=== PATIENT | female | born 1950 | race Asian ===

== ENCOUNTER 2016-11-05 10:08 | Outpatient (CLI) | payer OTHER | END 2016-11-05 19:30 | disposition home or self-care (01) | LOC: RAD 10:08 | DX: R09.82 Postnasal drip (principal); J40 Bronchitis, not specified as acute or chronic ==

== ENCOUNTER 2017-06-02 08:19 | Outpatient (CLI) | payer OTHER ==
[2017-06-02 08:59] LABS: PLATELET COUNT 236 K/uL (152-353)
[2017-06-02 09:30] LABS: POTASSIUM 3.8 mmol/L (3.6-5.2); SODIUM 139 mmol/L (136-145)
== END 2017-06-02 19:07 | disposition home or self-care (01) ==
LOC: MAMMO 08:19
PROVIDERS: Nurse Practitioner Family
DX: Z12.31 Encounter for screening mammogram for malignant neoplasm of breast (principal); I10 Essential (primary) hypertension; M06.09 Rheumatoid arthritis without rheumatoid factor, multiple sites; E03.8 Other specified hypothyroidism; E55.9 Vitamin D deficiency, unspecified
CPT/HCPCS: 36415; 80053; 82306; 84439; 84443; 84481; 85027; 85651; 86140

== ENCOUNTER 2017-08-16 12:13 | Outpatient (CLI) | payer OTHER | END 2017-08-16 19:49 | disposition home or self-care (01) | LOC: LABW 12:13 | DX: R53.83 Other fatigue (principal); M06.09 Rheumatoid arthritis without rheumatoid factor, multiple sites; Z79.899 Other long term (current) drug therapy; Z51.81 Encounter for therapeutic drug level monitoring | CPT/HCPCS: 36415; 84132 ==

== ENCOUNTER 2017-12-02 08:36 | Outpatient (CLI) | payer OTHER | END 2017-12-02 19:10 | disposition home or self-care (01) | LOC: US 08:36 | DX: R94.5 Abnormal results of liver function studies (principal) ==

== ENCOUNTER 2018-06-15 10:25 | Outpatient (CLI) | payer OTHER ==
[2018-06-15 10:57] LABS: PLATELET COUNT 193 K/uL (152-353)
[2018-06-15 11:13] LABS: POTASSIUM 3.7 mmol/L (3.6-5.2)
== END 2018-06-15 21:43 | disposition home or self-care (01) ==
LOC: LABW 10:25
PROVIDERS: Nurse Practitioner Family
DX: R94.5 Abnormal results of liver function studies (principal); Z79.899 Other long term (current) drug therapy; E56.8 Deficiency of other vitamins; E03.8 Other specified hypothyroidism; I10 Essential (primary) hypertension; M06.09 Rheumatoid arthritis without rheumatoid factor, multiple sites
CPT/HCPCS: 36415; 80053; 80061; 82306; 82746; 84080; 84439; 84443; 84481; 85027; 85651; 86140

== ENCOUNTER 2018-08-23 08:40 | Outpatient (CLI) | payer OTHER | END 2018-08-23 19:42 | disposition home or self-care (01) | LOC: US 08:40 | DX: R74.8 Abnormal levels of other serum enzymes (principal); M06.9 Rheumatoid arthritis, unspecified; I10 Essential (primary) hypertension ==

== ENCOUNTER 2018-08-24 08:34 | Outpatient (CLI) | payer OTHER | END 2018-08-24 21:41 | disposition home or self-care (01) | LOC: MAMMO 08:34 | DX: Z12.31 Encounter for screening mammogram for malignant neoplasm of breast (principal) ==

== ENCOUNTER 2019-01-22 08:50 | Outpatient (CLI) | payer OTHER | END 2019-01-23 05:46 | disposition home or self-care (01) | LOC: RAD 08:50 | DX: M85.89 Other specified disorders of bone density and structure, multiple sites (principal) ==

== ENCOUNTER 2019-08-31 08:51 | Outpatient (CLI) | payer OTHER | END 2019-08-31 22:45 | disposition home or self-care (01) | LOC: MAMMO 08:51 | DX: Z12.31 Encounter for screening mammogram for malignant neoplasm of breast (principal); M35.01 Sjogren syndrome with keratoconjunctivitis ==

== ENCOUNTER 2020-09-25 09:42 | Outpatient (CLI) | payer OTHER | END 2020-09-25 21:28 | disposition home or self-care (01) | LOC: MAMMO 09:42 | PROVIDERS: ATTEND Nurse Practitioner Family | DX: Z12.31 Encounter for screening mammogram for malignant neoplasm of breast (principal) ==

== ENCOUNTER → 2020-12-21 | Emergency (ER) | payer OTHER | LOC: ED 06:09 | DX: M25.552 Pain in left hip (principal); M62.831 Muscle spasm of calf; M16.12 Unilateral primary osteoarthritis, left hip | CPT/HCPCS: 36415; 96374; 96375; 99284; J1100; J1885; J2060 ==

== ENCOUNTER 2021-03-07 15:06 | Emergency (ER) | payer OTHER ==
[~2021-03-07] VITALS: Ht 165.1 cm; Wt 56.2 kg
[2021-03-07 15:58] LABS: PLATELET COUNT 250 K/uL (152-353)
[2021-03-07 19:48] VITALS: BP 128/82; TEMP 98.4
== END 2021-03-07 19:48 | disposition home or self-care (01) ==
LOC: ED 15:06
PROVIDERS: Family Medicine
DX: E87.6 Hypokalemia (principal); S22.32XA Fracture of one rib, left side, initial encounter for closed fracture; M51.36 Other intervertebral disc degeneration, lumbar region; Z98.890 Other specified postprocedural states; X58.XXXA Exposure to other specified factors, initial encounter; Y92.89 Other specified places as the place of occurrence of the external cause
CPT/HCPCS: 80053; 81000; 82150; 82550; 83690; 84132; 84484; 85027; 96374; 96375; 99284; J1100; J1885; J2405

== ENCOUNTER 2021-05-04 15:13 | Inpatient (IN) | payer OTHER ==
[~2021-05-04] VITALS: Ht 165.1 cm; Wt 80.8 kg
[2021-05-04 17:57] VITALS: BP 132/60; TEMP 97.9; Ht 165.1 cm; Wt 80.8 kg
[2021-05-06 20:00] VITALS: BP 115/67; TEMP 100.4
[2021-05-07 20:00] VITALS: BP 141/59; TEMP 98.6
[2021-05-08 08:00] VITALS: BP 164/75; TEMP 98.5
[2021-05-08 20:00] VITALS: BP 116/68; TEMP 98.5
[2021-05-09 20:00] VITALS: BP 134/68; TEMP 99.1
[2021-05-10 08:00] VITALS: BP 123/54; TEMP 97.5
[2021-05-10 20:38] VITALS: BP 138/73; TEMP 99
[2021-05-11 08:00] VITALS: BP 119/59; TEMP 98
[2021-05-11 20:00] VITALS: BP 144/78; TEMP 98.4
[2021-05-12 08:00] VITALS: BP 163/82; TEMP 98.1
[2021-05-12 20:00] VITALS: BP 116/67; TEMP 98.3
[2021-05-13 08:00] VITALS: BP 129/62; TEMP 100.2
[2021-05-14 08:00] VITALS: BP 137/62; TEMP 98.5
[2021-05-14 20:25] VITALS: BP 133/55; TEMP 98.6
[2021-05-15 08:00] VITALS: BP 168/66; TEMP 98.7
[2021-05-15 20:42] VITALS: BP 152/67; TEMP 98.9
[2021-05-16 08:00] VITALS: BP 138/66; TEMP 98.8
[2021-05-16 20:23] VITALS: BP 138/72; TEMP 98.7
[2021-05-17 21:38] VITALS: BP 109/66; TEMP 98.6
[2021-05-17 21:39] VITALS: BP 156/86; TEMP 98.1
[2021-05-18 01:38] VITALS: BP 146/82; TEMP 98.9
[2021-05-18 05:38] VITALS: BP 132/76; TEMP 98
[2021-05-18 09:38] VITALS: BP 132/75; TEMP 98.9
[2021-05-18 20:06] VITALS: BP 145/75; TEMP 97.9
[2021-05-19 08:00] VITALS: BP 153/69; TEMP 98.6
[2021-05-19 20:00] VITALS: BP 141/64; TEMP 98.9
[2021-05-20 08:00] VITALS: BP 128/46; TEMP 98.8
[2021-05-20 20:00] VITALS: BP 153/66; TEMP 98.2
[2021-05-22 08:00] VITALS: BP 141/60; TEMP 97.3
[2021-05-22 19:54] VITALS: BP 162/78; TEMP 98.3
[2021-05-23 08:00] VITALS: BP 140/66; TEMP 98.7
[2021-05-23 20:36] VITALS: BP 144/78; TEMP 98.7
[2021-05-24 08:00] VITALS: BP 140/68; TEMP 98.6
[2021-05-24 20:59] VITALS: BP 119/61; TEMP 98.8
[2021-05-25 20:00] VITALS: BP 161/72; TEMP 98.3
[2021-05-26 08:00] VITALS: BP 166/87; TEMP 98.7
[2021-05-26] MEDS ORDERED: METO25TA4 PEG (12:36)
[2021-05-26] MEDS ORDERED: HYDR25TA60 PEG (12:37)
[2021-05-26] MEDS ORDERED: GABA300C2 PEG (12:38)
[2021-05-26] MEDS ORDERED: ROPINIROLE0.5 MG PEG (12:39)
[2021-05-26] MEDS ORDERED: APIX1TAB PEG (12:40)
[2021-05-26] MEDS ORDERED: IMODIUM A-D2 M2 PEG (12:40)
[2021-05-26] MEDS ORDERED: MIRALAX17 GM PEG (12:41)
[2021-05-26] MEDS ORDERED: APAP325 MG PEG (12:50)
[2021-05-26] MEDS ORDERED: LANSOPRAZOLE 3 MG/ML PEG (12:51)
[2021-05-26] MEDS ORDERED: LIPITOR80 MG PEG (12:52)
[2021-05-26] MEDS ORDERED: LEVO0.0218 PO (12:52)
[2021-05-26] MEDS ORDERED: JEVITY PEG (12:53)
[2021-05-26] MEDS ORDERED: KP FOLIC ACID1 MG PEG (12:54)
[2021-05-26] MEDS ORDERED: ISOPTO TEARS 0.5% OPTH (12:55)
[2021-05-26] MEDS ORDERED: ACIDOPHILU6 PEG (12:56)
[2021-05-26] MEDS ORDERED: HYDR200T3 PEG (12:57)
[2021-05-26] MEDS ORDERED: ASPIRIN 81 LOW81 MG PEG (12:57)
== END 2021-05-26 14:10 | DRG 56 ==
LOC: MED/SURG 15:13
PROVIDERS: ADMIT Internal Medicine Endocrinology, Diabetes & Metabolism; ATTEND Internal Medicine Endocrinology, Diabetes & Metabolism
DX: I69.352 Hemiplegia and hemiparesis following cerebral infarction affecting left dominant side (principal); D64.9 Anemia, unspecified; I69.320 Aphasia following cerebral infarction; I69.391 Dysphagia following cerebral infarction; R13.12 Dysphagia, oropharyngeal phase; Z43.1 Encounter for attention to gastrostomy; Z43.0 Encounter for attention to tracheostomy; I10 Essential (primary) hypertension; K21.9 Gastro-esophageal reflux disease without esophagitis; E78.5 Hyperlipidemia, unspecified; E03.9 Hypothyroidism, unspecified; M62.81 Muscle weakness (generalized); J96.90 Respiratory failure, unspecified, unspecified whether with hypoxia or hypercapnia; Z74.1 Need for assistance with personal care; R53.81 Other malaise; M06.9 Rheumatoid arthritis, unspecified; I26.92 Saddle embolus of pulmonary artery without acute cor pulmonale; R27.9 Unspecified lack of coordination
CPT/HCPCS: 84550; 86140; 87077; 87081; 87186; 94760; G0283-GO; J1100

== ENCOUNTER 2021-05-26 13:31 | Inpatient (IN) | payer OTHER ==
[~2021-05-26 13:31] MED LIST: ACIDOPHILU6 PEG; APAP325 MG PEG; APIX1TAB PEG; ASPIRIN 81 LOW81 MG PEG; GABA300C2 PEG; HYDR200T3 PEG; HYDR25TA60 PEG; IMODIUM A-D2 M2 PEG; ISOPTO TEARS 0.5% OPTH; JEVITY PEG; KP FOLIC ACID1 MG PEG; LANSOPRAZOLE 3 MG/ML PEG; LEVO0.0218 PO; LIPITOR80 MG PEG; METO25TA4 PEG; MIRALAX17 GM PEG; ROPINIROLE0.5 MG PEG
== END 2021-05-27 09:31 | disposition still patient (30) ==
LOC: PAVB 13:31
PROVIDERS: ADMIT Internal Medicine; ATTEND Internal Medicine
DX: I69.354 Hemiplegia and hemiparesis following cerebral infarction affecting left non-dominant side (principal); I69.391 Dysphagia following cerebral infarction; I33.0 Acute and subacute infective endocarditis; I26.92 Saddle embolus of pulmonary artery without acute cor pulmonale; B96.1 Klebsiella pneumoniae [K. pneumoniae] as the cause of diseases classified elsewhere; Z93.1 Gastrostomy status; Z16.24 Resistance to multiple antibiotics; Z74.1 Need for assistance with personal care; M62.81 Muscle weakness (generalized)

== ENCOUNTER 2021-06-27 08:40 | Inpatient (IN) | payer OTHER | END 2021-07-28 09:27 | disposition still patient (30) | LOC: PAVB 08:40 | PROVIDERS: ADMIT Internal Medicine; ATTEND Internal Medicine | CPT/HCPCS: 80076; 84439; 84443 ==

== ENCOUNTER 2021-07-02 05:54 | Outpatient (CLI) | payer OTHER | END 2021-07-02 19:10 | disposition home or self-care (01) | LOC: LAB 05:54 | PROVIDERS: ATTEND Internal Medicine | DX: E03.9 Hypothyroidism, unspecified (principal); R94.5 Abnormal results of liver function studies | CPT/HCPCS: 80076; 84439; 84443 ==

== ENCOUNTER 2021-07-07 14:27 | Outpatient (CLI) | payer OTHER ==
[2021-07-07 14:49] LABS: PLATELET COUNT 303 K/uL (152-353)
== END 2021-07-07 19:18 | disposition home or self-care (01) ==
LOC: LAB 14:27
PROVIDERS: ATTEND Internal Medicine
DX: R20.8 Other disturbances of skin sensation (principal)
CPT/HCPCS: 36415; 84439; 84443; 85027

== ENCOUNTER 2021-07-09 21:24 | Emergency (ER) | payer OTHER ==
[~2021-07-09] VITALS: Ht 165.1 cm; Wt 78.5 kg
[2021-07-09 23:55] VITALS: BP 123/72; TEMP 98.3
== END 2021-07-09 23:55 ==
LOC: ED 21:24
DX: M25.512 Pain in left shoulder (principal); M75.02 Adhesive capsulitis of left shoulder
CPT/HCPCS: 93005; 96372; 99283; J1885; J2270; J2405

== ENCOUNTER 2021-07-28 13:22 | Inpatient (IN) | payer OTHER | END 2021-08-25 08:56 | disposition still patient (30) | LOC: PAVB 13:22 | PROVIDERS: ADMIT Internal Medicine; ATTEND Internal Medicine ==

== ENCOUNTER 2021-08-25 12:09 | Inpatient (IN) | payer OTHER | END 2021-09-25 08:40 | disposition still patient (30) | LOC: PAVB 12:09 | PROVIDERS: ADMIT Internal Medicine; ATTEND Internal Medicine ==

== ENCOUNTER 2021-08-31 06:57 | Outpatient (CLI) | payer OTHER | END 2021-08-31 19:06 | disposition home or self-care (01) | LOC: LAB 06:57 | PROVIDERS: ATTEND Internal Medicine | DX: E03.8 Other specified hypothyroidism (principal) | CPT/HCPCS: 36415; 84439; 84443 ==

== ENCOUNTER 2021-09-19 06:20 | Outpatient (CLI) | payer OTHER | END 2021-09-19 19:41 | disposition home or self-care (01) | LOC: LAB 06:20 | PROVIDERS: ATTEND Internal Medicine | DX: Z79.899 Other long term (current) drug therapy (principal); Z16.19 Resistance to other specified beta lactam antibiotics | CPT/HCPCS: 87081 ==

== ENCOUNTER 2021-09-25 08:50 | Inpatient (IN) | payer OTHER ==
[2021-09-30] MEDS ORDERED: ASPIRIN 81 LOW81 MG PEG (09:43)
[2021-09-30] MEDS ORDERED: LIPITOR80 MG PEG (09:45)
[2021-09-30] MEDS ORDERED: FE TABS325 MG PEG (09:46)
[2021-09-30] MEDS ORDERED: PAROXETINE HYDR20 MG PEG (09:50)
[2021-09-30] MEDS ORDERED: LANSOPRAZOLE DR30 MG PEG (09:51)
[2021-09-30] MEDS ORDERED: COLCHICINE0.6 M1 PEG (09:52)
[2021-09-30] MEDS ORDERED: ENTERAL NUTRITION FORMULA PEG (09:55)
[2021-09-30] MEDS ORDERED: MELOXICAM7.5 MG PEG (09:56)
[2021-09-30] MEDS ORDERED: SYSTANE OPTH (10:00)
[2021-09-30] MEDS ORDERED: TYLENOL 8 HOUR650 MG PEG (10:03)
[2021-10-07] MEDS ORDERED: QUET25TA2 PO (10:36)
[2021-10-07] MEDS ORDERED: GABA300C2 PO ×2 (10:37)
[2021-10-07] MEDS ORDERED: Voltaren GEL 1% 100G TOP (10:37)
[2021-10-07] MEDS ORDERED: ESCI10TA PO (10:37)
[2021-10-07] MEDS ORDERED: MELOXICAM7.5 MG PEG (10:39)
== END 2021-10-25 09:45 | disposition still patient (30) ==
LOC: PAVB 08:50
PROVIDERS: ADMIT Internal Medicine; ATTEND Internal Medicine

== ENCOUNTER 2021-09-29 14:13 | Emergency (ER) | payer OTHER ==
[~2021-09-29] VITALS: Ht 165.1 cm; Wt 78.5 kg
[2021-09-29 14:13] VITALS: BP 121/62; TEMP 98.8
[2021-09-29 14:58] LABS: PLATELET COUNT 145 K/uL (152-353)
[2021-09-29 15:22] LABS: POTASSIUM 3.6 mmol/L (3.6-5.2)
[2021-09-30] MEDS ORDERED: ASPIRIN 81 LOW81 MG PEG (09:43)
[2021-09-30] MEDS ORDERED: LIPITOR80 MG PEG (09:45)
[2021-09-30] MEDS ORDERED: FE TABS325 MG PEG (09:46)
[2021-09-30] MEDS ORDERED: PAROXETINE HYDR20 MG PEG (09:50)
[2021-09-30] MEDS ORDERED: LANSOPRAZOLE DR30 MG PEG (09:51)
[2021-09-30] MEDS ORDERED: COLCHICINE0.6 M1 PEG (09:52)
[2021-09-30] MEDS ORDERED: ENTERAL NUTRITION FORMULA PEG (09:55)
[2021-09-30] MEDS ORDERED: MELOXICAM7.5 MG PEG (09:56)
[2021-09-30] MEDS ORDERED: SYSTANE OPTH (10:00)
[2021-09-30] MEDS ORDERED: TYLENOL 8 HOUR650 MG PEG (10:03)
== END 2021-09-29 15:52 | disposition still patient (30) ==
LOC: ED 14:43
PROVIDERS: Emergency Medicine
DX: R45.1 Restlessness and agitation (principal); R50.9 Fever, unspecified; R30.0 Dysuria; Z11.52 Encounter for screening for COVID-19; Z04.6 Encounter for general psychiatric examination, requested by authority
CPT/HCPCS: 80053; 85027; 87635; 93005; 99283; U0003

== ENCOUNTER 2021-10-12 15:06 | Outpatient (CLI) | payer OTHER ==
[~2021-10-12 15:06] MED LIST changes: +COLCHICINE0.6 M1 PEG; +ENTERAL NUTRITION FORMULA PEG; +ESCI10TA PO; +FE TABS325 MG PEG; +GABA300C2 PO; +LANSOPRAZOLE DR30 MG PEG; +MELOXICAM7.5 MG PEG; +PAROXETINE HYDR20 MG PEG; +QUET25TA2 PO; +SYSTANE OPTH; +TYLENOL 8 HOUR650 MG PEG; +Voltaren GEL 1% 100G TOP
[2021-10-12 15:54] LABS: PLATELET COUNT 131 K/uL (152-353)
== END 2021-10-12 20:17 | disposition home or self-care (01) ==
LOC: LAB 15:06
PROVIDERS: ATTEND Internal Medicine
DX: K92.1 Melena (principal)
CPT/HCPCS: 82272; 85027

== ENCOUNTER 2021-10-25 11:56 | Inpatient (IN) | payer OTHER | END 2021-11-25 09:34 | disposition still patient (30) | LOC: PAVB 11:56 | PROVIDERS: ADMIT Internal Medicine; ATTEND Internal Medicine ==

== ENCOUNTER 2021-10-27 07:34 | Outpatient (CLI) | payer OTHER ==
[2021-10-27 08:01] LABS: PLATELET COUNT 98 K/uL (152-353)
[2021-10-27 08:19] LABS: POTASSIUM 3.4 mmol/L (3.6-5.2)
== END 2021-10-27 18:57 | disposition home or self-care (01) ==
LOC: LAB 07:34
PROVIDERS: ATTEND Internal Medicine
DX: D64.89 Other specified anemias (principal)
CPT/HCPCS: 80053; 85027

== ENCOUNTER 2021-11-03 05:45 | Outpatient (CLI) | payer OTHER ==
[2021-11-03 06:54] LABS: PLATELET COUNT 152 K/uL (152-353)
== END 2021-11-03 18:54 | disposition home or self-care (01) ==
LOC: LAB 05:45
PROVIDERS: ATTEND Internal Medicine
DX: R79.89 Other specified abnormal findings of blood chemistry (principal)
CPT/HCPCS: 85027

== ENCOUNTER 2021-11-20 14:20 | Outpatient (CLI) | payer OTHER ==
[2021-11-20 15:02] LABS: PLATELET COUNT 179 K/uL (152-353)
[2021-11-20 15:08] LABS: POTASSIUM 3.5 mmol/L (3.6-5.2)
== END 2021-11-20 19:30 | disposition home or self-care (01) ==
LOC: LAB 14:20
PROVIDERS: ATTEND Internal Medicine
DX: M06.8A Other specified rheumatoid arthritis, other specified site (principal); E03.8 Other specified hypothyroidism
CPT/HCPCS: 80053; 84439; 84443; 84550; 85027; 85652; 86038; 86140; 86235; 86431

== ENCOUNTER 2021-11-25 08:24 | Outpatient (CLI) | payer OTHER | END 2021-11-25 19:08 | disposition home or self-care (01) | LOC: US 08:24 | PROVIDERS: ATTEND Internal Medicine | DX: R94.5 Abnormal results of liver function studies (principal) ==

== ENCOUNTER 2021-11-25 12:57 | Inpatient (IN) | payer OTHER | END 2021-12-25 09:02 | disposition still patient (30) | LOC: PAVB 12:57 | PROVIDERS: ADMIT Internal Medicine; ATTEND Internal Medicine ==

== ENCOUNTER 2021-12-18 13:12 | Outpatient (CLI) | payer OTHER ==
[2021-12-18 15:03] LABS: PLATELET COUNT 192 K/uL (152-353)
== END 2021-12-18 19:22 | disposition home or self-care (01) ==
LOC: LAB 13:12
PROVIDERS: ATTEND Internal Medicine
DX: D64.89 Other specified anemias (principal)
CPT/HCPCS: 85027

== ENCOUNTER 2021-12-22 07:01 | Outpatient (CLI) | payer OTHER ==
[2021-12-22 16:13] LABS: PLATELET COUNT 211 K/uL (152-353)
== END 2021-12-22 20:33 | disposition home or self-care (01) ==
LOC: LAB 07:01
PROVIDERS: ATTEND Internal Medicine
DX: D64.9 Anemia, unspecified (principal)
CPT/HCPCS: 82607; 82728; 82747; 83540; 83550; 85027

== ENCOUNTER 2021-12-24 06:19 | Outpatient (CLI) | payer OTHER | END 2021-12-24 18:52 | disposition home or self-care (01) | LOC: LAB 06:19 | PROVIDERS: ATTEND Internal Medicine | DX: N18.9 Chronic kidney disease, unspecified (principal); D63.8 Anemia in other chronic diseases classified elsewhere | CPT/HCPCS: 82272 ==

== ENCOUNTER 2021-12-25 10:41 | Inpatient (IN) | payer OTHER | END 2022-01-25 09:13 | disposition still patient (30) | LOC: PAVB 10:41 | PROVIDERS: ADMIT Internal Medicine; ATTEND Internal Medicine ==

== ENCOUNTER 2022-01-13 05:41 | Outpatient (CLI) | payer OTHER ==
[2022-01-13 07:46] LABS: PLATELET COUNT 170 K/uL (152-353)
== END 2022-01-13 19:18 | disposition home or self-care (01) ==
LOC: LAB 05:41
PROVIDERS: ATTEND Internal Medicine
DX: R48.8 Other symbolic dysfunctions (principal); D64.9 Anemia, unspecified
CPT/HCPCS: 85027

== ENCOUNTER 2022-01-21 17:37 | Outpatient (CLI) | payer OTHER | END 2022-01-21 22:29 | disposition home or self-care (01) | LOC: LAB 17:37 | PROVIDERS: ATTEND Internal Medicine | DX: D51.9 Vitamin B12 deficiency anemia, unspecified (principal) | CPT/HCPCS: 82607 ==

== ENCOUNTER 2022-01-25 11:17 | Inpatient (IN) | payer OTHER | END 2022-02-25 08:59 | disposition still patient (30) | LOC: PAVB 11:17 | PROVIDERS: ADMIT Internal Medicine; ATTEND Internal Medicine ==

== ENCOUNTER 2022-02-15 08:04 | Outpatient (CLI) | payer OTHER ==
[2022-02-15 08:19] LABS: PLATELET COUNT 170 K/uL (152-353)
== END 2022-02-15 18:48 | disposition home or self-care (01) ==
LOC: LAB 08:04
PROVIDERS: ATTEND Internal Medicine
DX: D64.89 Other specified anemias (principal)
CPT/HCPCS: 85027

== ENCOUNTER 2022-02-17 16:22 | Outpatient (CLI) | payer OTHER | END 2022-02-17 19:40 | disposition home or self-care (01) | LOC: LAB 16:22 | PROVIDERS: ATTEND Internal Medicine | DX: K94.23 Gastrostomy malfunction (principal) | CPT/HCPCS: 87070; 87077; 87186; 87205 ==

== ENCOUNTER 2022-02-19 14:45 | Outpatient (CLI) | payer OTHER ==
[2022-02-19 15:34] LABS: POTASSIUM 3.5 mmol/L (3.6-5.2)
== END 2022-02-19 21:06 | disposition home or self-care (01) ==
LOC: LAB 14:45
PROVIDERS: ATTEND Internal Medicine
DX: R00.1 Bradycardia, unspecified (principal); E03.8 Other specified hypothyroidism
CPT/HCPCS: 80048; 84439; 84443

== ENCOUNTER 2022-02-25 10:40 | Inpatient (IN) | payer OTHER | END 2022-03-27 10:21 | disposition still patient (30) | LOC: PAVB 10:40 | PROVIDERS: ADMIT Internal Medicine; ATTEND Internal Medicine ==

== ENCOUNTER 2022-03-27 12:13 | Inpatient (IN) | payer OTHER | END 2022-04-27 14:32 | disposition still patient (30) | LOC: PAVB 12:13 | PROVIDERS: ADMIT Internal Medicine; ATTEND Internal Medicine ==

== ENCOUNTER 2022-04-27 15:07 | Inpatient (IN) | payer OTHER | END 2022-05-27 14:55 | disposition still patient (30) | LOC: PAVB 15:07 | PROVIDERS: ADMIT Internal Medicine; ATTEND Internal Medicine ==

== ENCOUNTER 2022-05-27 16:32 | Inpatient (IN) | payer OTHER | END 2022-06-27 10:32 | disposition still patient (30) | LOC: PAVB 16:32 | PROVIDERS: ADMIT Internal Medicine; ATTEND Internal Medicine ==

== ENCOUNTER 2022-06-01 10:48 | Outpatient (CLI) | payer OTHER ==
[2022-06-01 11:09] LABS: PLATELET COUNT 194 K/uL (152-353)
== END 2022-06-01 19:38 | disposition home or self-care (01) ==
LOC: LAB 10:48
PROVIDERS: ATTEND Internal Medicine
DX: I10 Essential (primary) hypertension (principal); E11.9 Type 2 diabetes mellitus without complications
CPT/HCPCS: 80053; 85027

== ENCOUNTER 2022-06-27 11:50 | Inpatient (IN) | payer OTHER | END 2022-07-28 08:41 | disposition still patient (30) | LOC: PAVB 11:50 | PROVIDERS: ADMIT Internal Medicine; ATTEND Internal Medicine ==

== ENCOUNTER 2022-07-28 10:20 | Inpatient (IN) | payer OTHER | END 2022-08-25 11:51 | disposition still patient (30) | LOC: PAVB 10:20 | PROVIDERS: ADMIT Internal Medicine; ATTEND Internal Medicine ==

== ENCOUNTER 2022-08-19 12:39 | Emergency (ER) | payer OTHER ==
[~2022-08-19] VITALS: Ht 165.1 cm; Wt 90.7 kg
[2022-08-19 12:59] VITALS: BP 133/65; TEMP 98
== END 2022-08-19 15:40 ==
LOC: ED 12:39
DX: I69.391 Dysphagia following cerebral infarction (principal); T17.928A Food in respiratory tract, part unspecified causing other injury, initial encounter; X58.XXXA Exposure to other specified factors, initial encounter; Y92.128 Other place in nursing home as the place of occurrence of the external cause
CPT/HCPCS: 99282

== ENCOUNTER 2022-08-25 12:12 | Inpatient (IN) | payer OTHER | END 2022-09-25 11:22 | disposition still patient (30) | LOC: PAVB 12:12 | PROVIDERS: ADMIT Internal Medicine; ATTEND Internal Medicine ==

== ENCOUNTER 2022-09-13 10:35 | Emergency (ER) | payer OTHER ==
[~2022-09-13] VITALS: Ht 165.1 cm; Wt 109.8 kg
[2022-09-13 10:35] VITALS: BP 177/77; TEMP 97.3
[2022-09-13 12:46] LABS: PLATELET COUNT 208 K/uL (152-353)
== END 2022-09-13 14:50 | disposition home or self-care (01) ==
LOC: ED 10:35
PROVIDERS: Emergency Medicine Emergency Medical Services
DX: R09.1 Pleurisy (principal)
CPT/HCPCS: 80053; 84484; 85027; 85610; 93005; 99283

== ENCOUNTER 2022-09-25 11:35 | Inpatient (IN) | payer OTHER | END 2022-10-25 10:37 | disposition still patient (30) | LOC: PAVB 11:35 | PROVIDERS: ADMIT Internal Medicine; ATTEND Internal Medicine ==

== ENCOUNTER 2022-10-25 11:00 | Inpatient (IN) | payer OTHER | END 2022-11-25 10:33 | disposition still patient (30) | LOC: PAVB 11:00 | PROVIDERS: ADMIT Internal Medicine; ATTEND Internal Medicine ==

== ENCOUNTER 2022-10-26 04:52 | Outpatient (CLI) | payer OTHER ==
[2022-10-26 10:02] LABS: PLATELET COUNT 191 K/uL (152-353)
== END 2022-10-26 19:14 | disposition home or self-care (01) ==
LOC: LAB 04:52
PROVIDERS: ATTEND Internal Medicine
DX: I10 Essential (primary) hypertension (principal); E11.9 Type 2 diabetes mellitus without complications
CPT/HCPCS: 80053; 85027

== ENCOUNTER 2022-11-25 10:47 | Inpatient (IN) | payer OTHER | END 2022-12-25 17:31 | disposition still patient (30) | LOC: PAVB 10:47 | PROVIDERS: ADMIT Internal Medicine; ATTEND Internal Medicine ==

== ENCOUNTER 2022-11-25 14:54 | Outpatient (CLI) | payer OTHER ==
[2022-11-25 15:02] LABS: PLATELET COUNT 233 K/uL (152-353)
[2022-11-25 15:16] LABS: POTASSIUM 3.9 mmol/L (3.6-5.2)
== END 2022-11-25 19:42 | disposition home or self-care (01) ==
LOC: LAB 14:54 → RESP 14:54 → LAB 19:42
PROVIDERS: ATTEND Internal Medicine
DX: Z01.818 Encounter for other preprocedural examination (principal)
CPT/HCPCS: 36415; 80053; 85027; 93005